=== PATIENT | male | born 1955 | race Caucasian/White ===

== ENCOUNTER 2017-11-09 07:43 | Day surgery (SDC) | payer BC, OTHER ==
[~2017-11-09 07:43] MED LIST: Lactated Ringers 1,000 ML IV SCH
[2017-11-09] MEDS ORDERED: Propofol 200 MG/20 ML SDV ONE (10:02)
[2017-11-09] MEDS ORDERED: fentaNYL 100 MCG/2 ML SDV ONE (10:02)
--- NOTE | 2017-11-09 14:43 | OR ---
DATE OF SURGERY: 11/09/2017. REFERRING PROVIDER: JAGDEEP March. PREOPERATIVE DIAGNOSES: Screening colonoscopy. Patient's last colonoscopy was 10 or 11 years ago and was normal. There is no known family history of colon cancer or colon polyps. POST-OPERATIVE DIAGNOSES: Mild diverticulosis, otherwise normal colon. PROCEDURE: Colonoscopy. SURGEON: Tarun Burns M.D. ANESTHESIA: Monitored anesthesia care. BOWEL PREP: Good. Timothy is a 62-year-old male was brought to the endoscopy suite after discussing risks and benefits of the procedure. Informed consent was obtained for conscious sedation and colonoscopy with or without biopsy and/or polypectomy. We also discussed possibility of missed lesions. Pre-procedure exam was unremarkable. IV, oxygen, and monitors were placed. The patient was placed in the left lateral decubitus position. Sedation was administered and a digital rectal exam was performed which was unremarkable. Colonoscope was passed into the rectum and slowly advanced all the way to the cecum. Cecum was viewed and photographed. The colonoscope was slowly withdrawn and the mucosa was closed observed in a direct circumferential manner. There was some mild diverticulosis mainly to the sigmoid area. The ascending colon was unremarkable. The transverse colon was unremarkable. The descending colon was unremarkable. The sigmoid colon was unremarkable. Retroflexion was performed and rectal mucosa was unremarkable. Scope was removed. The patient tolerated the procedure well. The patient was monitored until that baseline status. Discharge instructions were reviewed and the patient was discharged in good condition. COMPLICATIONS: None. TOTAL TIME: 15 minutes. ESTIMATED BLOOD LOSS: None. RECOMMENDATIONS/FOLLOW-UP: Recommend repeat screening colonoscopy in 10 years barring any interval change in patient's symptoms or family history. I would like to kindly thank Armand Shah for this referral. DMB: 11/09/2017 10:33:37 MODL: 11/09/2017 14:06:27 /[id number]
== END 2017-11-09 11:40 | disposition home or self-care (01) ==
LOC: VM.SDS 07:43
PROVIDERS: ATTEND Family Medicine
DX: Z12.11 Encounter for screening for malignant neoplasm of colon (principal); K57.30 Diverticulosis of large intestine without perforation or abscess without bleeding; G47.33 Obstructive sleep apnea (adult) (pediatric); N52.9 Male erectile dysfunction, unspecified; J34.2 Deviated nasal septum; F17.210 Nicotine dependence, cigarettes, uncomplicated; E78.2 Mixed hyperlipidemia; Z79.82 Long term (current) use of aspirin; Z79.51 Long term (current) use of inhaled steroids; Z79.899 Other long term (current) drug therapy
CPT/HCPCS: 45378; J2704; J3010; J7120